=== PATIENT | male | born 1980 | race Caucasian/White ===

== ENCOUNTER 2017-03-24 16:40 | Emergency (ER) | payer MEDICAID, OTHER ==
[2017-03-24 16:40] VITALS: BMI 27.8
[2017-03-24 16:53] VITALS: TEMP 98.6
[2017-03-24] MEDS ORDERED: Lidocaine 2% Inj (20ml) INFIL STA (17:43)
[2017-03-24] MEDS ORDERED: Lidocaine 1% Inj (20ml) ONE (17:45)
--- NOTE | 2017-03-24 18:09 | C.PDOC ---
History Of Present Illness The patient, a 36 y/o male, presents to the ED for evaluation of an abscess to his mid-clavicular region which began around 1 year ago. Patient states he has been experiencing swelling with no pain for 1 year. Patient notes he's been experiencing pain with increased swelling for the past 5 days so he reports to the ED for further evaluation. Patient denies fever, chills, recent trauma/ injury toe the affected area. Time Seen by Provider: 03/24/17 17:03 Chief Complaint (Nursing): Abnormal Skin Integrity History Per: Patient History/Exam Limitations: no limitations Onset/Duration Of Symptoms: Days (5), Worse Since Current Symptoms Are (Timing): Still Present Location Of Injury: Left: Chest (mid-clavicular region ) Quality Of Symptoms: Painful, Swollen Additional History Per: Patient Past Medical History Reviewed: Historical Data, Nursing Documentation, Vital Signs Vital Signs: Last Vital Signs Temp 98.6 F 03/24/17 16:50 Pulse 84 03/24/17 18:31 Resp 18 03/24/17 18:31 BP 135/84 03/24/17 18:31 Pulse Ox 98 03/24/17 18:31 - Medical History PMH: Denies: Diabetes, Hepatitis, HIV, HTN, Seizures, Sexually Transmitted Disease Surgical History: No Surg Hx Family History: States: Unknown Family Hx - Social History Hx Tobacco Use: Yes Hx Alcohol Use: Yes Hx Substance Use: No - Immunization History Hx Influenza Vaccination: No Review Of Systems Except As Marked, All Systems Reviewed And Found Negative. Constitutional: Negative for: Fever, Chills Skin: Positive for: Other (+painful, swollen abscess to left mid-clavicular region ) Physical Exam - Physical Exam Appears: Non-toxic, No Acute Distress Skin: Normal Color, Warm, Dry, Other (+left mid-clavicular region: fluctuant abscess with one punctate in center ) Head: Atraumatic, Normacephalic Eye(s): bilateral: Normal Inspection Oral Mucosa: Moist Neck: Supple Chest: Symmetrical, No Deformity, No Tenderness Cardiovascular: Rhythm Regular, No Murmur Respiratory: Normal Breath Sounds, No Rales, No Rhonchi, No Wheezing Back: Normal Inspection, No Vertebral Tenderness, No Paraspinal Tenderness Extremity: Normal ROM, Capillary Refill (less than 2 seconds ) Neurological/Psych: Oriented x3, Normal Speech, Normal Cognition Gait: Steady ED Course And Treatment O2 Sat by Pulse Oximetry: 99 (on RA) Pulse Ox Interpretation: Normal Progress Note: Patient received Doxycycline PO. Fluctuant area to left mid- clavicular region. Local anesthesia achieved with 1 % lidocaine without epinephrine. Area cleaned with 10% betadine solution. Insion made with sterile scalpel. A fatty keratinous cyst that resembles cottage cheese was expressed with cyst wall. Sterile packing placed in incision. Wound dressed with dry, sterile dressing. Pt tolerated well. On reassessment, patient is resting comfortably, showing no signs of distress, and is stable for discharge. Patient is advised to follow up with ED within 2 days for wound check. Reassessment Condition: Improved - Incision & Drainage Of Abscess Anesthesia: Lidocaine 2% Procedure: Drained Pus, Irrigated Cavity W/Saline, Probed To Break Up Loculations, Packed W/Gauze, Cultures Obtained And Sent To Lab Disposition - Disposition Disposition: HOME/ ROUTINE Disposition Time: 18:09 Condition: STABLE Additional Instructions: Follow up with PMD as needed. Return to ED in 2 days for wound check and dressing change. return to Ed if feel worse. Prescriptions: Doxycycline Hyclate [Doryx] 100 mg PO BID #14 cap Ibuprofen [Motrin Tab] 600 mg PO Q8 #30 tab Instructions: Abscess Incision and Drainage (ED) - Clinical Impression Clinical Impression: Abscess - PA / [employer] / Resident Statement MD/DO has reviewed & agrees with the documentation as recorded. - Scribe Statement The provider has reviewed the documentation as recorded by the Scribe (Shantel Chong) All medical record entries made by the Scribe were at my direction and personally dictated by me. I have reviewed the chart and agree that the record accurately reflects my personal performance of the history, physical exam, medical decision making, and the department course for this patient. I have also personally directed, reviewed, and agree with the discharge instructions and disposition.
[2017-03-24 18:32] VITALS: BP 135/84; PULSE 84; RESP 18
[2017-03-24 21:12] VITALS: O2SAT 99
== END 2017-03-24 18:31 | disposition home or self-care (01) ==
LOC: C.ER 16:40
DX: L02.213 Cutaneous abscess of chest wall (principal); B95.7 Other staphylococcus as the cause of diseases classified elsewhere

== ENCOUNTER 2017-03-26 12:21 | Emergency (ER) | payer MEDICAID, OTHER ==
[2017-03-26 12:21] VITALS: BMI 27.8
[2017-03-26 12:28] VITALS: BP 129/82; PULSE 84; RESP 18; TEMP 98.4; O2SAT 99
[2017-03-26] MEDS ORDERED: Bacitracin 500 Units/gm Oint Foilpak UD TOP ONE (12:40)
--- NOTE | 2017-03-26 12:41 | C.PDOC ---
History Of Present Illness 36 yr old male presents to the ER for a wound check. Patient was seen in ER 2 days ago for an abscess to the mid-clavicular region and had an I&D done. Patient reports the symptoms have improved. Patient denies fever, chills, chest pain, SOB, nausea, vomiting or rash. Time Seen by Provider: 03/26/17 12:25 Chief Complaint (Nursing): Abnormal Skin Integrity History Per: Patient History/Exam Limitations: no limitations Onset/Duration Of Symptoms: Days (2) Current Symptoms Are (Timing): Better Past Medical History Reviewed: Historical Data, Nursing Documentation, Vital Signs Vital Signs: Last Vital Signs Temp 98.4 F 03/26/17 12:26 Pulse 84 03/26/17 12:26 Resp 18 03/26/17 12:26 BP 129/82 03/26/17 12:26 Pulse Ox 99 03/26/17 12:41 Family History: States: No Known Family Hx - Social History Hx Tobacco Use: Yes Hx Alcohol Use: Yes Hx Substance Use: No - Immunization History Hx Influenza Vaccination: No Review Of Systems Except As Marked, All Systems Reviewed And Found Negative. Constitutional: Negative for: Fever, Chills Cardiovascular: Negative for: Chest Pain Respiratory: Negative for: Shortness of Breath Gastrointestinal: Negative for: Nausea, Vomiting Skin: Positive for: Other (Wound check to for an abscess on the mid-clavicular region ). Negative for: Rash Physical Exam - Physical Exam Appears: Well, Non-toxic, No Acute Distress Skin: Warm, Dry, No Rash, Other (Mid-clavicular region, 0.5cm with packing place , minimal surrounding erythema. No dischagre. ) Head: Atraumatic, Normacephalic Neck: Normal, Normal ROM, Supple Chest: Symmetrical, No Tenderness Cardiovascular: Rhythm Regular, No Murmur Respiratory: Normal Breath Sounds, No Rales, No Rhonchi, No Stridor, No Wheezing Extremity: Normal ROM, No Swelling Neurological/Psych: Oriented x3, Normal Speech, Normal Motor ED Course And Treatment O2 Sat by Pulse Oximetry: 99 Progress Note: Packing is removed and Bacitracin is applied. Medical Decision Making Medical Decision Making: PLAN: * Bacitracin TOP Disposition - Disposition Disposition: HOME/ ROUTINE Disposition Time: 12:40 Condition: STABLE Additional Instructions: return to er with worsening symptoms or concerns. Instructions: Abscess Incision and Drainage (ED) - Clinical Impression Clinical Impression: Abscess - Scribe Statement The provider has reviewed the documentation as recorded by the Daibe Elizabeth Cabrales Provider Attestation: All medical record entries made by the Dorothy were at my direction and personally dictated by me. I have reviewed the chart and agree that the record accurately reflects my personal performance of the history, physical exam, medical decision making, and the department course for this patient. I have also personally directed, reviewed, and agree with the discharge instructions and disposition.
[2017-03-26] MEDS ORDERED: Bacitracin 500 Units/gm Oint Foilpak UD ONE (12:51)
== END 2017-03-26 12:53 | disposition home or self-care (01) ==
LOC: C.ER 12:21
DX: Z48.00 Encounter for change or removal of nonsurgical wound dressing (principal)